=== PATIENT | female | born 1980 | race Caucasian/White ===

== ENCOUNTER → 2016-10-08 | Outpatient (CLI) | payer BC | END | disposition home or self-care (01) | LOC: RAD 17:36 | PROVIDERS: ATTEND Registered Nurse | DX: R51 Headache (principal) | CPT/HCPCS: 70100; 70150 ==

== ENCOUNTER → 2016-10-12 | Outpatient (CLI) | payer BC ==
[~2016-10-12] MED LIST: FENTANYL PF 250 MCG/5ML ONE; HYDR-3138 PO; KETAMINE 10 MG/ML, 20ML ONE; MIDAZOLAM 1 MG/ML, 2ML ONE
== END | disposition home or self-care (01) ==
LOC: RAD 11:25
PROVIDERS: ATTEND Nurse Practitioner Family
DX: S02.82XA Fracture of other specified skull and facial bones, left side, initial encounter for closed fracture (principal); J32.0 Chronic maxillary sinusitis; X58.XXXA Exposure to other specified factors, initial encounter; Y93.89 Activity, other specified; Y92.89 Other specified places as the place of occurrence of the external cause; Y99.8 Other external cause status
CPT/HCPCS: 70486

== ENCOUNTER 2016-10-18 05:14 | Day surgery (SDC) | payer BC ==
[~2016-10-18] VITALS: Ht 170.2 cm; Wt 70.0 kg
[2016-10-18] MEDS ORDERED: LACTATED RINGERS 1,000 ML IV SCH (06:01)
[2016-10-18 06:03] VITALS: BP 136/91
[2016-10-18] MEDS ORDERED: LIDOCAINE 1%, 2ML ONE (06:13)
[2016-10-18] MEDS ORDERED: HYDR-3138 PO (06:18)
[2016-10-18 06:27] LABS: HCG UR OBC PASS
[2016-10-18] MEDS ORDERED: LIDOCAINE 1%, 2ML SQ PRN (06:30)
[2016-10-18] MEDS ORDERED: MUPIROCIN OINT 2%, 22GM ONE (06:55)
[2016-10-18] MEDS ORDERED: LIDOCAINE 1%-EPI 1:100K, 50ML ONE (06:56)
[2016-10-18] MEDS ORDERED: BALANCED SALT OPHTH IRRIG SOLN 18ML ONE (06:56)
[2016-10-18 07:08] LABS: HEMOGLOBIN 12.8 g/dL (11.7-16.4)
[2016-10-18] MEDS ORDERED: ROCURONIUM 10 MG/ML ONE (07:27)
[2016-10-18] MEDS ORDERED: CEFAZOLIN 1,000 MG ONE (07:27)
[2016-10-18] MEDS ORDERED: ONDANSETRON 2MG/ML, 2ML ONE (07:27)
[2016-10-18] MEDS ORDERED: GLYCOPYRROLATE 0.2MG/1ML ONE (07:27)
[2016-10-18] MEDS ORDERED: PROPOFOL 10 MG/ML, 20ML ONE (07:27)
[2016-10-18] MEDS ORDERED: SUCCINYLCHOLINE 20 MG/ML, 10ML ONE (07:27)
[2016-10-18] MEDS ORDERED: DEXAMETHASONE 4 MG/ML, 5ML ONE (07:27)
[2016-10-18] MEDS ORDERED: METOCLOPRAMIDE 5 MG/ML, 2ML IV PRN (07:30)
[2016-10-18] MEDS ORDERED: MEPERIDINE/PF 25MG/0.5ML IVPush PRN (07:30)
[2016-10-18] MEDS ORDERED: ONDANSETRON 2MG/ML, 2ML IVPush PRN (07:30)
[2016-10-18] MEDS ORDERED: MIDAZOLAM 1 MG/ML, 2ML IV PRN (07:30)
[2016-10-18] MEDS ORDERED: OXYcodone 5 MG/5 ML ORAL.SOL UDC PO PRN (07:30)
[2016-10-18] MEDS ORDERED: hydrALAzine 20 MG/ML, 1ML IV PRN (07:30)
[2016-10-18] MEDS ORDERED: PROMETHAZINE 25 MG/ML, 1ML IV PRN (07:30)
[2016-10-18] MEDS ORDERED: ACETAMINOPHEN 325 MG TABLET PO PRN (07:30)
[2016-10-18] MEDS: FENTANYL PF 100 MCG/2ML IV PRN ×2 (08:48→09:00)
[2016-10-18] MEDS: LABETALOL 5MG/ML, 20ML IV PRN ×2 (09:20→09:32)
[2016-10-18] MEDS: HYDROmorphone 1 MG/ML, 1ML IV PRN ×4 (09:21→09:50)
[2016-10-18] MEDS ORDERED: HYDROcodone/APAP 7.5-325MG/15ML UDC ONE (10:16)
[2016-10-18] MEDS ORDERED: HYDROcodone/APAP 7.5-325MG/15ML UDC PO PRN (10:30)
== END 2016-10-18 12:45 ==
LOC: OUT 05:14
PROVIDERS: ATTEND Otolaryngology Facial Plastic Surgery
DX: S02.40FA Zygomatic fracture, left side, initial encounter for closed fracture (principal); S52.042A Displaced fracture of coronoid process of left ulna, initial encounter for closed fracture; W50.1XXA Accidental kick by another person, initial encounter; Y93.9 Activity, unspecified; Y92.9 Unspecified place or not applicable; Y99.9 Unspecified external cause status
CPT/HCPCS: 21365; 36415; 81025; 85025; C1713; J0330; J0690; J1100; J1170; J2250; J2405; J2704; J3010; J3490; J7120